=== PATIENT | female | born 1995 | race Caucasian/White ===

== ENCOUNTER 2021-03-16 09:48 | Outpatient (RCR) | payer BC, SELFPAY | END 2021-03-16 13:11 | disposition home or self-care (01) | LOC: HO.PHPA 09:48 | PROVIDERS: Visit Provider Psychiatry & Neurology Psychiatry | DX: F33.2 Major depressive disorder, recurrent severe without psychotic features (principal); F41.0 Panic disorder [episodic paroxysmal anxiety]; F41.1 Generalized anxiety disorder; F42.9 Obsessive-compulsive disorder, unspecified | CPT/HCPCS: 90791 ==

== ENCOUNTER 2021-04-22 08:30 | Outpatient (RCR) | payer BC, SELFPAY ==
[2021-04-01 12:12] VITALS: BMI 26.4
--- NOTE | 2021-04-01 14:02 | PC.ADMIT ---
Patient is a 25 year old female who was referred by [facility] inpatient behavioral health unit s/p overdose on Fluoxetine, Gabapentin, and Pregabalin. Patient has a history of SI however this is her first SA. When asked how she felt about the SA she stated she did not want to talk about it. She did state she made herself throw up right afterwards and told her parents whom she lives with. Patient did state she does not know what happened. She stated she is, not that depressed . Denied SI. Patient reports anxiety and severe panic attacks having them about 2 x a day. Reports her OCD intrusive thoughts started when she was dx with strep throat 3 months in a row last October, November, and December 2020. 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 Patient was a [employer] student and left after 4-5 months d/t mental health issues and bullying. Patient reports her parents are administering her medications as a precaution however patient stated she would be fine with her medications as she does not feel as bad as she did prior to hospitalization. In reviewing patient medications with patient she stated she recently saw her neurologist and he put her on Amitriptyline. I asked her if she knew the dose and she grabbed the bottle in her room. She also is newly prescribed Trazodone and when I asked her if she new the does she stated her parents have her medications. I asked patient since she just got out of the hospital if they could hold on to the Amytriptyline for now and patient agreed and stated she would give to her parents after we were done. Emerita Zurita [employer] aware. Patient stated that her parents have the rest of her medications. Patient reports that a previous prescriber had her on 8 mg of Ativan daily. Her prescriber wanted her to taper down the medication and when patient did this she reports she had a seizure at work. Patient stated she and her mother were not aware that this could happen with the medication. Patient stated she eventually would like to taper off the medication completely. Patient presents with depressed mood with blunted affect. Denied SI or thoughts to harm herself. Asked is she was feeling unsafe who could she reach out to and she stated crisis, he mom, or her aunt, and agreed to reach out to them if she was feeling unsafe. Medications reconciled with patient, patient's pharmacy, and [facility] d/c medication list.
--- NOTE | 2021-04-01 22:47 | HO.PS.ADMBH ---
HPI Date of Service: 04/01/21 Chief Complaint: Anxiety Disorder, MDD Additional Sources of Information: chart review, patient interview [facility] Narrative: Patient is a 25 year old female who present to [facility] follow recent psychiatric admission for suicide attempt via overdose. Intake note reviewed Patient with history of MDD, worsening over time Patient guarded and providing minimal responses during interview. Reporting that she is feeling anxious as today is something new for her. She denies any suicidal ideation. This was patients first attempt She reports previous [facility] admission when in high school. No psychiatric provider at this time. Patient reported to RN intrusive thoughts related to OCD that have worsened since several strep infections btwn fall in winter. Reports medication changes in hospital helped, and finds that sleep has improved. Med reconciliation completed by RN and reviewed with patient. Patient reported previously being prescribed up to 8mg of Lorazepam daily and when tapering from that dose, has a seizure. 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 Diagnostics Vital Signs (24Hr): BMI result Body Mass Index 26.4 Meds/Allergies Allergies Allergies Allergy/AdvReac Type Severity Reaction Status Date / Time No Known Allergies Allergy Verified 04/01/21 14:01 Mental Status Exam Mental Status Exam Patient Appearance: Well Grooomed and Appropriate Patient Orientation: Person, Place, Time and Situation Level of Consciousness: Awake and Appropriate Patient Behavior: Guarded Mood Description: Blunted Affect Description: Blunted Speech Pattern: Clear Thought Process: Intact Thought Content: positive for Intact Judgement: Fair Telehealth Telehealth Location of provider rendering services: practice address Location of patient: address on file Patient Identification confirmed using: Name, : Yes Telehealth method: video Patient verbally consented to treatment: Yes Assessment & Plan Assessment & Plan (1) Major depress dis, severe: Status: Acute Code(s): F32.2 - Major depressive disorder, single episode, severe without psychotic features Assessment and Plan: continue medications as prescribed refills provided for one week amitryptilline rx given to parents follow up PRN Certification I certify that partial hospital treatment is medically necessary due to the symptoms and problems resulting from the patient's mental illness and the failure to treat the patient at the partial hospital level of care would likely result in the patient requiring inpatient psychiatric care which could not be prevented at a less intensive level of care.
--- NOTE | 2021-04-05 16:10 | PC.NURSE ---
Case opened in treatment team.
--- NOTE | 2021-04-07 15:50 | HO.PHPPROGNO ---
Subjective Subjective Date of Service: 04/07/21 Reason For Visit: Anxiety Disorder, MDD Guardianship: No Medical Problems Affecting Mental Status: No Interim History: Kelin reports she was feeling anxious earlier today. She states however that she was contacted [facility] and was told they will provide intake for her for provider and therapist. She states that she is feeling better now. Reports that depression symptoms are gradually improving. Trazodone is helping with sleep. Appetite is good. Denies any thought of harm to others or self, no safety concern, no SI. Reports energy is slightly improving, she is able to complete most ADLs and IADLs as she is getting less depressed. Continues with some discomfort related to her fibromyalgia. Parents continue to hold her medications and give them as scheduled. Medication Compliance: Yes Side effects from medications: No Attending Groups: Yes Review of Systems Acute medical concerns: No Medical Review of Systems: unchanged Review of Systems Review of Systems Yes all other systems are reviewed and are negative Constitutional: Reports no additional constitutional complaints Mental Status Exam Mental Status Exam Narrative: Well-developed, well-nourished female, in NAD. Appears stated age. No tics or tremors, no abnormal movements noted. Patient Appearance: Well Grooomed and Appropriate Patient Orientation: Person, Place, Time and Situation Level of Consciousness: Awake, Appropriate and Alert Patient Behavior: Appropriate, Cooperative and Good Eye Contact Mood Description: Appropriate, Depressed and Anxious Affect Description: Calm and Appropriate Patient Cognition Impaired: No Ability to Follow Directions: Excellent Speech Pattern: Clear, Appropriate and Coherent Memory Description: Intact Hallucinations: None Delusions: Not Present Thought Process: Intact, Goal Oriented and Linear Thought Content: positive for Intact, positive for Goal Oriented and positive for Linear Depressive Symptoms: Difficulty Sleeping (Difficulty staying asleep), Loss of Int. in Activity, Feelings of Worthlessness, Unhappiness and Low Self Esteem Judgement: Fair Diagnostics Vital Signs (24Hr): BMI result Body Mass Index 26.4 Assessment & Plan Assessment & Plan (1) Major depress dis, severe: Status: Acute Code(s): F32.2 - Major depressive disorder, single episode, severe without psychotic features Assessment and Plan: Kelin reports she was feeling anxious earlier today. She states however that she was contacted by [facility] and was told they will provide intake for her for provider and therapist. She states that she is feeling better now. Reports that depression symptoms are gradually improving. Trazodone is helping with sleep. Appetite is good. Denies any thought of harm to others or self, no safety concern, no SI. Reports energy is slightly improving, she is able to complete most ADLs and IADLs as she is getting less depressed. Continues with some discomfort related to her fibromyalgia. Parents continue to hold her medications and give them as scheduled. Reports that she is finding the structure and the groups in [facility] to be helpful. Requests refills for BuSpar, gabapentin, lorazepam, lyrica, trazodone. Plan 1. Continue with current [facility] plan of care. 2. Refills for BuSpar, gabapentin, lorazepam, Lyrica, trazodone sent to Pharmacy, 7 day supply for each. 3. Follow-up as per protocol. Patient educated on: diagnosis, medication risk/benefits and therapeutic strategies Informed Consent: understands Reason for contiued partial hosp. stay Substantial Risk for: harm to self, inability to function and med/psych decompensation Certification I certify that partial hospital treatment is medically necessary due to the symptoms and problems resulting from the patient's mental illness and the failure to treat the patient at the partial hospital level of care would likely result in the patient requiring inpatient psychiatric care which could not be prevented at a less intensive level of care. I spent __30____ minutes with the patient and/or on the patient floor today, greater than?50% of which was spent counseling/coordinating care. Discharge Plan Discharge Attending provider: Buddy Thurman Medications: New buspirone 10 mg tablet 10 mg PO TID 7 Days Qty: 21 0RF gabapentin 300 mg capsule 300 mg PO BEDTIME 7 Days Qty: 7 0RF lorazepam 1 mg tablet 1 mg PO TID 7 Days Qty: 21 0RF pregabalin 150 mg capsule 150 mg PO BID 7 Days Qty: 14 0RF trazodone 50 mg tablet 50 mg PO BEDTIME PRN (Reason: insomnia) Qty: 7 0RF Discontinued trazodone 50 mg Tablet 50 mg PO BEDTIME PRN (Reason: Insomnia) 0RF buspirone [BuSpar] 10 mg Tablet 10 mg PO TID 0RF lorazepam 1 mg Tablet 1 mg PO TID 0RF gabapentin 300 mg Tablet 300 mg PO BEDTIME 0RF Label Comments: Per d/c orders prescribed gabapentin 300 mg TID, patient reports only taking 300 mg at HS as it makes her drowsy. Emerita Zurita aware. pregabalin 150 mg Capsule 150 mg PO BID 0RF No Action amitriptyline 25 mg Tablet 25 mg PO DAILY PRN (Reason: Headache) 0RF Label Comments: Patient stated new medication from her neurologist whom she saw recently for migraines. Filled 03/30/2021. Rx Instructions: Take at dinnertime Telehealth Telehealth Location of provider rendering services: practice address Location of patient: address on file Patient Identification confirmed using: Name, : Yes Telehealth method: video Patient verbally consented to treatment: Yes Patient verbally consented to billing insurance company: Yes Patient informed of any privacy concerns related to visit: Yes Time spent with patient (mins): 20
--- NOTE | 2021-04-11 15:27 | HO.PHPPROGNO ---
Subjective Subjective Date of Service: 04/11/21 Reason For Visit: Anxiety Disorder, MDD Guardianship: No Medical Problems Affecting Mental Status: No Interim History: Kelin reports having a difficult weekend, with increased anxiety. Reports she took extra doses of Ativan because of this. Reports feeling guilty that she took the medication rather than utilizing coping skills. Asking for med occasion adjustments/change in order to help with increased anxiety. Reports feeling mood instability, questioning diagnosis. No SI reported, no safety concern. Medication Compliance: Yes (overtook lorazepam over weekend, due to increased anxiety) Side effects from medications: No Attending Groups: Yes Review of Systems Acute medical concerns: No Medical Review of Systems: unchanged Review of Systems Review of Systems Yes all other systems are reviewed and are negative Constitutional: Reports no additional constitutional complaints Mental Status Exam Mental Status Exam Narrative: Well-developed, well-nourished female, in NAD. No tics or tremors, no abnormal movements noted. Patient Appearance: Well Grooomed and Appropriate Patient Orientation: Person, Place, Time and Situation Level of Consciousness: Awake, Appropriate and Alert Patient Behavior: Appropriate, Cooperative and Good Eye Contact Mood Description: Appropriate, Depressed and Anxious Affect Description: Appropriate, Depressed and Anxious Patient Cognition Impaired: No Ability to Follow Directions: Excellent Speech Pattern: Clear, Appropriate and Coherent Memory Description: Intact Hallucinations: None Delusions: Not Present Thought Process: Intact, Goal Oriented and Linear Thought Content: positive for Intact, positive for Goal Oriented and positive for Linear Depressive Symptoms: Increased Anxiety, Difficulty Sleeping (Difficulty staying asleep), Loss of Int. in Activity, Feelings of Worthlessness, Feelings of Guilt, Unhappiness and Low Self Esteem Judgement: Fair Diagnostics Vital Signs (24Hr): BMI result Body Mass Index 26.4 Assessment & Plan Assessment & Plan (1) Major depress dis, severe: Status: Acute Code(s): F32.2 - Major depressive disorder, single episode, severe without psychotic features Assessment and Plan: Patient continues with symptoms of feeling overwhelmed, depression, obsessive thoughts. No SI at this time, no safety concern. Expresses guilt and remorse, due to fact that she resorted to taking extra lorazepam over the weekend when experiencing increased anxiety, rather than ?using my coping skills ?. Reports that she is only taking gabapentin at night, as the other 2 doses during the day made her sluggish. She does express concern that she may have been misdiagnosed, as she feels she has mood destabilization, with extremely high highs, and then extremely low lows. She does not report ever having several days at a time where she felt she needed little sleep, symptoms of grandiosity, increased goal-directed activities, engagement in risky behaviors. She reports that anybody close to her has never expressed their concerns regarding any type of cali or hypomania in her past. Discussed medications, including trial of increasing BuSpar from 10 mg t.i.d. to 15 mg t.i.d.. Also discussed adding low-dose Lamictal, 25 mg x 14 days. Medication education provided, discussed risks and benefits, side effects, alternatives. She was willing at this time to try Lamictal for mood stabilization. (2) OCD (obsessive compulsive disorder): Status: Acute Code(s): F42.9 - Obsessive-compulsive disorder, unspecified Plan 1. Start Lamictal 25 mg x 14 days, with plan to continue titration upwards if no side effects. 2. Increase BuSpar to 15 mg t.i.d.. 3. Continue with current [facility] plan of care. 4. Follow-up later this week. Patient educated on: medication risk/benefits and therapeutic strategies Informed Consent: understands Reason for contiued partial hosp. stay Substantial Risk for: harm to self, inability to function and med/psych decompensation Certification I certify that partial hospital treatment is medically necessary due to the symptoms and problems resulting from the patient's mental illness and the failure to treat the patient at the partial hospital level of care would likely result in the patient requiring inpatient psychiatric care which could not be prevented at a less intensive level of care. I spent _30 minutes with the patient and/or on the patient floor today, greater than?50% of which was spent counseling/coordinating care. Discharge Plan Discharge Attending provider: Buddy Thurman Medications: New gabapentin 300 mg capsule 300 mg PO BEDTIME 7 Days Qty: 7 0RF lorazepam 1 mg tablet 1 mg PO TID 7 Days Qty: 21 0RF pregabalin 150 mg capsule 150 mg PO BID 7 Days Qty: 14 0RF trazodone 50 mg tablet 50 mg PO BEDTIME PRN (Reason: insomnia) Qty: 7 0RF buspirone 15 mg tablet 15 mg PO TID 7 Days Qty: 21 0RF lamotrigine [Lamictal] 25 mg tablet 25 mg PO DAILY 14 Days Qty: 14 0RF Discontinued trazodone 50 mg Tablet 50 mg PO BEDTIME PRN (Reason: Insomnia) 0RF buspirone [BuSpar] 10 mg Tablet 10 mg PO TID 0RF lorazepam 1 mg Tablet 1 mg PO TID 0RF gabapentin 300 mg Tablet 300 mg PO BEDTIME 0RF Label Comments: Per d/c orders prescribed gabapentin 300 mg TID, patient reports only taking 300 mg at HS as it makes her drowsy. Emerita Zurita aware. pregabalin 150 mg Capsule 150 mg PO BID 0RF No Action amitriptyline 25 mg Tablet 25 mg PO DAILY PRN (Reason: Headache) 0RF Label Comments: Patient stated new medication from her neurologist whom she saw recently for migraines. Filled 03/30/2021. Rx Instructions: Take at dinnertime Telehealth Telehealth Location of provider rendering services: practice address Location of patient: address on file Patient Identification confirmed using: Name, : Yes Telehealth method: video Patient verbally consented to treatment: Yes Patient verbally consented to billing insurance company: Yes Patient informed of any privacy concerns related to visit: Yes Time spent with patient (mins): 25
--- NOTE | 2021-04-14 11:51 | P.PNPSP_ITS ---
Subjective Subjective Date of Service: 04/14/21 Reason For Visit: Anxiety Disorder, MDD Guardianship: No Medical Problems Affecting Mental Status: No Interim History: Reports that she missed yesterday due to a medical appointment. States that she is ?pretty happy to be back in groups today ?. Denies SI, no safety concern. Reports obsessive thoughts are lessening Taking new medications as prescribed, reports no side effects. Requests refills of medications. Medication Compliance: Yes Side effects from medications: No Attending Groups: Yes Review of Systems Acute medical concerns: No Medical Review of Systems: unchanged Review of Systems Review of Systems Yes all other systems are reviewed and are negative Constitutional: Reports no additional constitutional complaints Mental Status Exam Mental Status Exam Narrative: Well-developed, well-nourished female, in NAD. No tics or tremors, no abnormal movements noted. Patient Appearance: Well Grooomed and Appropriate Patient Orientation: Person, Place, Time and Situation Level of Consciousness: Awake, Appropriate and Alert Patient Behavior: Appropriate, Cooperative and Good Eye Contact Mood Description: Appropriate, Depressed (says sx are lessening), Anxious (says sx are lessening) and Sad Affect Description: Appropriate, Depressed (improving, but still present) and Anxious (improving, but still present) Patient Cognition Impaired: No Ability to Follow Directions: Excellent Speech Pattern: Clear, Appropriate and Coherent Memory Description: Intact Hallucinations: None Delusions: Not Present Thought Process: Intact, Goal Oriented and Linear Thought Content: positive for Intact, positive for Goal Oriented and positive for Linear Depressive Symptoms: Increased Anxiety, Difficulty Sleeping (Difficulty staying asleep), Loss of Int. in Activity, Feelings of Guilt and Low Self Esteem Judgement: Fair Diagnostics Vital Signs (24Hr): BMI result Body Mass Index 26.4 Assessment & Plan Assessment & Plan (1) Major depress dis, severe: Status: Acute Code(s): F32.2 - Major depressive disorder, single episode, severe without psychotic features Assessment and Plan: Overall client reports she feels she continues with some depression and anxiety, obsessive thoughts, but overall they are improving. Denies SI, no safety concern at this time. Has begun taking the increased dose of BuSpar along with Lamictal, no side effects. States she has not yet noticed affect with the 2 new medications, discussed benefits, need to take for at least several weeks or longer before she will notice affect. She is finding groups helpful. She missed program yesterday, as she had a medical procedure/appointment. She stated that she missed being here and structure of the groups. (2) OCD (obsessive compulsive disorder): Status: Acute Code(s): F42.9 - Obsessive-compulsive disorder, unspecified Plan 1. Two week supply prescriptions sent for pregabalin, gabapentin, buspar, trazodone, lorazepam. 2. Continue with current [facility] plan of care. 3. Follow-up as per protocol. Patient educated on: diagnosis, medication risk/benefits and therapeutic strategies Informed Consent: understands Reason for contiued partial hosp. stay Substantial Risk for: inability to function and med/psych decompensation Certification I certify that partial hospital treatment is medically necessary due to the symptoms and problems resulting from the patient's mental illness and the failure to treat the patient at the partial hospital level of care would likely result in the patient requiring inpatient psychiatric care which could not be prevented at a less intensive level of care. I spent minutes with the patient and/or on the patient floor today, greater than?50% of which was spent counseling/coordinating care. Discharge Plan Discharge Attending provider: Buddy Thurman Medications: New lamotrigine [Lamictal] 25 mg tablet 25 mg PO DAILY 14 Days Qty: 14 0RF gabapentin 300 mg capsule 300 mg PO BEDTIME 14 Days Qty: 14 0RF trazodone 50 mg tablet 50 mg PO BEDTIME PRN (Reason: sleep) 14 Days Qty: 14 0RF buspirone 15 mg tablet 15 mg PO TID 14 Days Qty: 42 0RF pregabalin 150 mg capsule 150 mg PO BID 14 Days Qty: 28 0RF lorazepam 1 mg tablet 1 mg PO TID PRN (Reason: anxiety) 14 Days Qty: 42 0RF Discontinued trazodone 50 mg Tablet 50 mg PO BEDTIME PRN (Reason: Insomnia) 0RF buspirone [BuSpar] 10 mg Tablet 10 mg PO TID 0RF lorazepam 1 mg Tablet 1 mg PO TID 0RF gabapentin 300 mg Tablet 300 mg PO BEDTIME 0RF Label Comments: Per d/c orders prescribed gabapentin 300 mg TID, patient reports only taking 300 mg at HS as it makes her drowsy. Emerita Zurita aware. pregabalin 150 mg Capsule 150 mg PO BID 0RF No Action amitriptyline 25 mg Tablet 25 mg PO DAILY PRN (Reason: Headache) 0RF Label Comments: Patient stated new medication from her neurologist whom she saw recently for migraines. Filled 03/30/2021. Rx Instructions: Take at dinnertime Telehealth Telehealth Location of provider rendering services: practice address Location of patient: address on file Patient Identification confirmed using: Name, : Yes Telehealth method: video Patient verbally consented to treatment: Yes Patient verbally consented to billing insurance company: Yes Patient informed of any privacy concerns related to visit: Yes Time spent with patient (mins): 15
--- NOTE | 2021-04-18 10:52 | PM.EVENT ---
Event Note Date of Service: 04/18/21 Event Note: Patient did not attend scheduled appointment with me at 10:45, she had contacted memory care program resident to report that she had a migraine and was taking rest of day off.
--- NOTE | 2021-04-20 13:55 | HO.PHPPROGNO ---
Subjective Subjective Date of Service: 04/20/21 Reason For Visit: Anxiety Disorder, MDD Guardianship: No Medical Problems Affecting Mental Status: No Interim History: Describes mood as ?very anxious and stressed ?. States that she always has internal anxiety and stress, but at this moment she is also being triggered by external issues. She would not elaborate further. Describes current mood further as ?depressed, angry, confused, anxious, the whole 9 yards ?. Reports poor sleep last night. Reports that she stopped taking Lamictal, due to queasy stomach. Requesting increase in lorazepam. Medication Compliance: Intermittent Side effects from medications: Yes (Reports stopping Lamictal, due to GI upset.) Attending Groups: Yes Review of Systems Acute medical concerns: No Medical Review of Systems: unchanged Review of Systems Review of Systems Yes all other systems are reviewed and are negative Constitutional: Reports no additional constitutional complaints Psychiatric: Reports anxiety Mental Status Exam Mental Status Exam Narrative: Well-developed, well-nourished, in NAD. Presents with anxious mood, depressed, flat affect. Monotone voice. No SI, no safety concern at this time. Patient Appearance: Fatigued and Appropriate Patient Orientation: Person, Place, Time and Situation Level of Consciousness: Awake, Appropriate and Alert Patient Behavior: Appropriate, Cooperative and Good Eye Contact Mood Description: Depressed, Anxious and Angry Affect Description: Depressed, Blunted and Flat Patient Cognition Impaired: No Ability to Follow Directions: Good Speech Pattern: Clear, Appropriate, Coherent and Soft-Spoken Memory Description: Intact Hallucinations: None Delusions: Not Present Thought Process: Intact Thought Content: positive for Intact and positive for Obsessional Thoughts (focused on anxiety, stress) Depressive Symptoms: Increased Anxiety, Increased Irritability and Difficulty Sleeping Judgement: Fair Diagnostics Vital Signs (24Hr): BMI result Body Mass Index 26.4 Assessment & Plan Assessment & Plan (1) Major depress dis, severe: Status: Acute Code(s): F32.2 - Major depressive disorder, single episode, severe without psychotic features Assessment and Plan: Patient reports continued depressed, anxious mood. Denies SI, no safety concern. She states that it is difficult to concentrate when ?I am tired and exploding with emotions?. Describes her panic attacks have been more more frequent. Reports that she feels increased dose of BuSpar is somewhat helpful. Stopped taking Lamictal, due to feeling of queasy stomach. Discussed medications in detail. I suggested an SSRI such as sertraline or Lexapro for increased anxiety, depression. She states that she tried many many medications over the past year, more than 10. She states that she tried both of these medications and did not like them. She states that the sertraline made her feel flat. We discussed a variety of other medications, such as Cymbalta, Effexor. I explained that many of these medications work very well for panic disorder, major depressive disorder, anxiety/obsessive thoughts. She is not interested in starting any new medications at this time, as she is leaving program on Sunday. She is asking for higher dose of lorazepam. I reported that I would not do this at this time, and that she would need to follow-up with her lorazepam with an outpatient provider. I did state that I would fill a 1 month script for her at 1 mg t.i.d., her current amount. I suggested hydroxyzine p.r.n. to help with anxiety. She states that she has tried hydroxyzine before and that it did not help. We discussed combination of using Ativan 3 times a day, and using hydroxyzine as needed during the day in order to help with any breakthrough anxiety. She stated that she would try this. Reports poor sleep, discussed increase of trazodone. She was agreeable with this. She has an upcoming appointment at [facility], and plans to have a provider there as well. Asking for 30 day scripts for her medications, which will be sent in today. (2) OCD (obsessive compulsive disorder): Status: Acute Code(s): F42.9 - Obsessive-compulsive disorder, unspecified Plan 1. Increase trazodone to 50 mg at bedtime, may repeat in 1 hour. 2. Start hydroxyzine 50 mg t.i.d. p.r.n. for anxiety. 3. Continue with all other medications as prescribed, 30 day scripts to be sent. 4. Patient to be discharged on Sunday04/22/2021. 5. Patient to follow-up with outpatient providers going forward. Patient educated on: diagnosis, medication risk/benefits and therapeutic strategies Informed Consent: understands Reason for contiued partial hosp. stay Substantial Risk for: inability to function and med/psych decompensation Certification I certify that partial hospital treatment is medically necessary due to the symptoms and problems resulting from the patient's mental illness and the failure to treat the patient at the partial hospital level of care would likely result in the patient requiring inpatient psychiatric care which could not be prevented at a less intensive level of care. I spent minutes with the patient and/or on the patient floor today, greater than?50% of which was spent counseling/coordinating care. Discharge Plan Discharge Attending provider: Buddy Thurman Medications: New gabapentin 300 mg capsule 300 mg PO BEDTIME 14 Days Qty: 14 0RF trazodone 50 mg tablet 50 mg PO BEDTIME PRN (Reason: sleep) 14 Days Qty: 14 0RF buspirone 15 mg tablet 15 mg PO TID 14 Days Qty: 42 0RF pregabalin 150 mg capsule 150 mg PO BID 14 Days Qty: 28 0RF lorazepam 1 mg tablet 1 mg PO TID PRN (Reason: anxiety) 14 Days Qty: 42 0RF Discontinued trazodone 50 mg Tablet 50 mg PO BEDTIME PRN (Reason: Insomnia) 0RF buspirone [BuSpar] 10 mg Tablet 10 mg PO TID 0RF lorazepam 1 mg Tablet 1 mg PO TID 0RF gabapentin 300 mg Tablet 300 mg PO BEDTIME 0RF Label Comments: Per d/c orders prescribed gabapentin 300 mg TID, patient reports only taking 300 mg at HS as it makes her drowsy. Emerita Zurita aware. pregabalin 150 mg Capsule 150 mg PO BID 0RF No Action amitriptyline 25 mg Tablet 25 mg PO DAILY PRN (Reason: Headache) 0RF Label Comments: Patient stated new medication from her neurologist whom she saw recently for migraines. Filled 03/30/2021. Rx Instructions: Take at dinnertime Stand Alone Forms: Patient Portal Discharge page Telehealth Telehealth Location of provider rendering services: practice address Location of patient: address on file Patient Identification confirmed using: Name, : Yes Telehealth method: video Patient verbally consented to treatment: Yes Patient verbally consented to billing insurance company: Yes Patient informed of any privacy concerns related to visit: Yes Time spent with patient (mins): 25
--- NOTE | 2021-04-22 12:16 | PC.NURSE ---
Patient scheduled to discharge from [facility] today. Patient reports she has, mixed feelings regarding discharge stating she is, nervous and excited . Patient denied SI . She has the crisis number if needed. Reviewed patient medications with patient. Patient reports taking medications as prescribed. Discussed TMS treatment with patient, patient reports she tried TMS in the past and did not find it helpful.
== END 2021-04-22 23:59 | disposition home or self-care (01) ==
LOC: HO.PHPA 08:30
PROVIDERS: Visit Provider Psychiatry & Neurology Psychiatry
DX: F32.2 Major depressive disorder, single episode, severe without psychotic features (principal); F42.9 Obsessive-compulsive disorder, unspecified; Z79.899 Other long term (current) drug therapy
CPT/HCPCS: 90791; 90853